=== PATIENT | female | born 1980 | race Caucasian/White ===

== ENCOUNTER 2017-08-31 12:04 | Emergency (ER) | payer OTHER ==
[~2017-08-31] VITALS: Ht 162.6 cm; Wt 77.6 kg
[~2017-08-31 12:04] MED LIST: TYLENOL WITH C1 EACH PO
[2017-08-31 16:03] LABS: CHLORIDE 106 mEq/L (99-109); POTASSIUM 4.1 mEq/L (3.7-5.4); SODIUM 138 mEq/L (136-147)
[2017-08-31 16:05] LABS: GLUCOSE 91 mg/dL (70-99)
[2017-08-31 16:06] LABS: ANION GAP 8 MEQ/L (2-14)
[2017-08-31 16:06] LABS: ADD MIUA? NO; BILIRUBIN NEGATIVE; BLOOD NEGATIVE; COLOR STRAW ((YELLOW)); GLUCOSE (STRIP) NEGATIVE; KETONES NEGATIVE; LEUKOCYTES NEGATIVE; NITRITE NEGATIVE; PROTEIN (STRIP) NEGATIVE; SPECIFIC GRAVITY 1.004 (1.000-1.030); UCUL ADDED? NO; UROBILINOGEN 0.2 MG/DL (0.2-1.0)
[2017-08-31 16:07] LABS: TOTAL BILIRUBIN 0.4 mg/dL (0.0-1.0)
[2017-08-31 16:09] LABS: ALKALINE PHOSPHATASE 53 IU/L (3-129); GFR ESTIMATE (CALCULATED) > 59 mL/min/
[2017-08-31 16:10] LABS: UREA NITROGEN (BUN) 7 mg/dL (9-23)
[2017-08-31 16:12] LABS: HEMATOCRIT 40.6 % (36.0-46.0); MCH 32.5 PG (29.0-34.0); MCHC 33.3 G/DL (30.0-36.0); MCV 97.6 FL (83-99); MEAN PLAT.VOLUME 10.7 uM^3 (9.5-12.4); PLATELET COUNT 270 K/uL (156-360); RBC DIS.WIDTH-CV 12.1 % (11.8-14.6); RBC DIS.WIDTH-SD 43.9 % (39-53); RED BLOOD COUNT 4.16 M/uL (3.80-5.20); WHITE BLOOD COUNT 10.9 K/uL (4.1-10.2)
[2017-08-31 16:31] VITALS: BP 125/80
== END 2017-08-31 16:31 | disposition home or self-care (01) ==
LOC: EME 12:04
PROVIDERS: Physician Assistant
DX: R60.0 Localized edema (principal); B19.20 Unspecified viral hepatitis C without hepatic coma; J45.909 Unspecified asthma, uncomplicated; E78.5 Hyperlipidemia, unspecified; F43.10 Post-traumatic stress disorder, unspecified; F90.9 Attention-deficit hyperactivity disorder, unspecified type; F19.10 Other psychoactive substance abuse, uncomplicated; F17.200 Nicotine dependence, unspecified, uncomplicated
CPT/HCPCS: 80053; 81003; 83880; 85027; 99281; 99283

== ENCOUNTER 2018-03-08 19:56 | Emergency (ER) | payer OTHER ==
[~2018-03-08] VITALS: Ht 162.6 cm; Wt 87.2 kg
[2018-03-08 21:11] LABS: HEMATOCRIT 42.1 % (36.0-46.0); HEMOGLOBIN 14.2 G/DL (11.9-15.5); MCH 31.3 PG (29.0-34.0); MCHC 33.7 G/DL (30.0-36.0); MCV 92.7 FL (83-99); PLATELET COUNT 362 K/uL (156-360); RBC DIS.WIDTH-CV 13.2 % (11.8-14.6); RBC DIS.WIDTH-SD 44.6 % (39-53); RED BLOOD COUNT 4.54 M/uL (3.80-5.20); WHITE BLOOD COUNT 19.2 K/uL (4.1-10.2)
[2018-03-08 21:45] LABS: QUANTITATIVE HCG < 4.0 MIU/ML
[2018-03-08 22:20] LABS: ALBUMIN 4.2 g/dL (3.2-4.8); CHLORIDE 103 mEq/L (99-109); POTASSIUM 3.5 mEq/L (3.7-5.4); SODIUM 141 mEq/L (136-147)
[2018-03-08 22:23] LABS: GLUCOSE 131 mg/dL (70-99); TOTAL PROTEIN 7.5 g/dL (6.4-8.3)
[2018-03-08 22:24] LABS: TOTAL BILIRUBIN 0.3 mg/dL (0.0-1.0)
[2018-03-08 22:26] LABS: ALKALINE PHOSPHATASE 62 IU/L (3-129); CREATININE 0.8 mg/dL (0.6-1.3); GFR ESTIMATE (CALCULATED) > 59 mL/min/
[2018-03-08 22:27] LABS: UREA NITROGEN (BUN) 13 mg/dL (9-23)
[2018-03-08 22:28] LABS: AST (GOT) 23 IU/L (2-34)
[2018-03-08 22:29] LABS: ALT (GPT) 44 IU/L (3-49)
[2018-03-08 22:30] LABS: LIPASE 25 U/L (1.0-51.0)
[2018-03-08 23:03] VITALS: BP 111/79
[2018-03-08 23:03] LABS: APPEARANCE CLOUDY ((CLEAR)); BILIRUBIN NEGATIVE; BLOOD NEGATIVE; COLOR YELLOW ((YELLOW)); GLUCOSE (STRIP) NEGATIVE; KETONES NEGATIVE; LEUKOCYTES NEGATIVE; NITRITE NEGATIVE; PROTEIN (STRIP) NEGATIVE; SPECIFIC GRAVITY 1.018 (1.000-1.030); UROBILINOGEN 0.2 MG/DL (0.2-1.0)
[2018-03-09 01:31] LABS: AMORPHOUS URATES CRYSTALS 2+; BACTERIA RARE /HPF; EPITHELIAL CELLS RARE /HPF; MUCUS TRACE /LPF; RED BLOOD CELLS RARE /HPF (0-5); UCUL ADDED? NO; WHITE BLOOD CELLS NONE SEEN /HPF (0-5)
== END 2018-03-08 23:03 | disposition home or self-care (01) ==
LOC: EME 19:56
DX: R10.32 Left lower quadrant pain (principal); Z53.21 Procedure and treatment not carried out due to patient leaving prior to being seen by health care provider; E78.5 Hyperlipidemia, unspecified; J45.909 Unspecified asthma, uncomplicated; D25.9 Leiomyoma of uterus, unspecified; B19.20 Unspecified viral hepatitis C without hepatic coma; F90.9 Attention-deficit hyperactivity disorder, unspecified type; F43.10 Post-traumatic stress disorder, unspecified; F31.9 Bipolar disorder, unspecified; F17.200 Nicotine dependence, unspecified, uncomplicated
CPT/HCPCS: 80053; 81003; 83690; 84702; 85027; 99281; 99283

== ENCOUNTER 2018-06-08 21:36 | Emergency (ER) | payer OTHER ==
[~2018-06-08] VITALS: Ht 162.6 cm; Wt 84.9 kg
[2018-06-08 23:55] LABS: ALBUMIN 4.4 g/dL (3.2-4.8); CHLORIDE 105 mEq/L (99-109); POTASSIUM 4.3 mEq/L (3.7-5.4); SODIUM 138 mEq/L (136-147)
[2018-06-08 23:58] LABS: GLUCOSE 105 mg/dL (70-99); TOTAL PROTEIN 7.6 g/dL (6.4-8.3)
[2018-06-09] LABS: TOTAL BILIRUBIN 0.5 mg/dL (0.0-1.0)
[2018-06-09 00:02] LABS: ALKALINE PHOSPHATASE 78 IU/L (3-129); CREATININE 0.7 mg/dL (0.6-1.3); GFR ESTIMATE (CALCULATED) > 59 mL/min/
[2018-06-09 00:03] LABS: AST (GOT) 82 IU/L (2-34); UREA NITROGEN (BUN) 8 mg/dL (9-23)
[2018-06-09 00:04] LABS: ALT (GPT) 117 IU/L (3-49)
[2018-06-09 00:05] LABS: CREATINE KINASE 30 IU/L (1-294); TOTAL CK 30 IU/L (1-294)
[2018-06-09 00:11] LABS: TROP-I INTERPRETATION NEGATIVE; TROPONIN-I < 0.01 ng/mL (0.0-0.30)
[2018-06-09 00:12] LABS: CK-MB < 0.4 ng/mL (0.0-4.9); QUANTITATIVE HCG < 4.0 MIU/ML
[2018-06-09 00:24] LABS: BASOPHIL (%) 0.4 % (0-1); BASOPHIL COUNT 0.1 K/uL (0-0.1); EOSINOPHIL COUNT 0.1 K/uL (0-0.3); HEMATOCRIT 43.3 % (36.0-46.0); HEMOGLOBIN 14.8 G/DL (11.9-15.5); IMMATURE GRANULOCYTE (%) 0.4 % (0.0-0.7); LYMPHOCYTE (%) 19.2 % (15-42); LYMPHOCYTE COUNT 2.5 K/uL (1.0-2.8); MCH 31.7 PG (29.0-34.0); MCHC 34.2 G/DL (30.0-36.0); MCV 92.7 FL (83-99); MONOCYTE (%) 5.2 % (3-12); MONOCYTE COUNT 0.7 K/uL (0-0.8); NEUTROPHIL (%) 73.8 % (45-76); NEUTROPHIL COUNT 9.6 K/uL (1.8-6.4); RBC DIS.WIDTH-CV 12.7 % (11.8-14.6); RBC DIS.WIDTH-SD 42.8 % (39-53); RED BLOOD COUNT 4.67 M/uL (3.80-5.20); WHITE BLOOD COUNT 12.9 K/uL (4.1-10.2)
[2018-06-09 00:26] LABS: PLATELET CLUMPS PRESENT - PLATELET COUNT APPEARS ADEQUATE; PLATELET COUNT UNABLE TO REPORT K/uL (156-360)
[2018-06-09 01:03] VITALS: BP 132/79
== END 2018-06-09 01:03 | disposition home or self-care (01) ==
LOC: EME 21:36
PROVIDERS: Emergency Medicine
DX: R42 Dizziness and giddiness (principal); R11.2 Nausea with vomiting, unspecified; R00.2 Palpitations; R94.31 Abnormal electrocardiogram [ECG] [EKG]; T50.995A Adverse effect of other drugs, medicaments and biological substances, initial encounter; E78.5 Hyperlipidemia, unspecified; J45.909 Unspecified asthma, uncomplicated; B19.20 Unspecified viral hepatitis C without hepatic coma; F90.9 Attention-deficit hyperactivity disorder, unspecified type; F31.9 Bipolar disorder, unspecified; F41.9 Anxiety disorder, unspecified; F17.200 Nicotine dependence, unspecified, uncomplicated; Z88.1 Allergy status to other antibiotic agents
CPT/HCPCS: 80053; 80178; 82550; 82553; 84484; 84702; 85025; 93005

== ENCOUNTER 2018-07-20 21:24 | Emergency (ER) | payer OTHER ==
[~2018-07-20] VITALS: Ht 162.6 cm; Wt 83.4 kg
[2018-07-20] MEDS ORDERED: ZOLOFT25 MG PO (21:59)
[2018-07-20 22:20] VITALS: BP 122/86
== END 2018-07-20 22:27 | disposition home or self-care (01) ==
LOC: EME 21:24
DX: Z76.0 Encounter for issue of repeat prescription (principal); Z88.1 Allergy status to other antibiotic agents; Z91.013 Allergy to seafood
CPT/HCPCS: 99281; 99283